=== PATIENT | male | born 1990 | race Caucasian/White ===

== ENCOUNTER 2017-10-03 08:43 | Emergency (ER) | payer MEDICAID ==
[~2017-10-03] VITALS: Ht 175.3 cm; Wt 107.0 kg
[2017-10-03 08:57] VITALS: BP_SYST 149
[2017-10-03] MEDS ORDERED: KETOROLAC TROMETHAMINE 30 MG VIAL IM ONE (09:15)
[2017-10-03 09:37] LABS: BASOPHILS # (AUTO) 0.1 K/uL (0.0-0.2); BASOPHILS % (AUTO) 0.8 % (0.0-2.0); EOSINOPHILS % (AUTO) 0.3 % (0.0-4.0); HEMATOCRIT 50.8 % (36-54); HEMOGLOBIN 16.7 g/dL (14.0-18.0); LYMPHOCYTES % (AUTO) 16.6 % (20.5-51.5); MEAN CORPUSCULAR HEMOGLOBIN 29 pg (27-31); MEAN CORPUSCULAR HGB CONC 33 % (32-36); MEAN CORPUSCULAR VOLUME 87 fL (79.0-98.0); MONOCYTES % (AUTO) 8.1 % (1.7-9.3); NEUTROPHILS # (AUTO) 8.7 K/uL (1.8-7.7); NEUTROPHILS % (AUTO) 74.2 % (40.0-70.0); PLATELET COUNT (AUTO) 264 K/uL (130-430); RED BLOOD CELL COUNT(AUTO) 5.84 MIL/uL (4.2-6.2); RED CELL DISTRIBUTION WIDTH 12.4 % (9.0-15.0); WHITE BLOOD COUNT (AUTO) 11.8 K/uL (4.8-10.8)
[2017-10-03 09:41] LABS: CALCIUM 9.2 mg/dL (8.4-11.0); CREATININE 1.02 mg/dL (0.55-1.30); POTASSIUM 3.7 mmol/L (3.5-5.1)
[2017-10-03 09:45] LABS: ALBUMIN 4.2 g/dL (3.4-4.8); TOTAL BILIRUBIN 0.9 mg/dL (0.0-1.0)
[2017-10-03 10:13] LABS: INFLUENZA A&B ANTIGEN SCREEN NEGATIVE FOR A & B (NEGATIVE)
[2017-10-03 10:27] VITALS: BP_SYST 135
[2017-10-03 13:26] LABS: STREPTOCOCCUS A SCREEN (RAPID) NEGATIVE (NEGATIVE)
== END 2017-10-03 10:27 | disposition home or self-care (01) ==
LOC: SED 08:43
DX: K52.9 Noninfective gastroenteritis and colitis, unspecified (principal); J02.9 Acute pharyngitis, unspecified
CPT/HCPCS: 36415; 80053; 83690; 85025; 86403; 86710; 96372; 99284; J1885; 87081

== ENCOUNTER 2018-09-09 20:19 | Emergency (ER) | payer MEDICAID ==
[~2018-09-09] VITALS: Ht 180.3 cm; Wt 122.5 kg
[2018-09-09] MEDS ORDERED: NACL 0.9% 1,000 ML IV ONE (20:44)
[2018-09-09 20:45] VITALS: BP_SYST 148
--- NOTE | 2018-09-09 20:46 | NUR ---
Patient to ER bed h1 to gown for evaluation. Side rails up. Report received from ANGELA Tran.
--- NOTE | 2018-09-09 20:46 | NUR ---
Pt complains of feeling dizzy and weak since today. Pt states he felt like this last week but resolved. Pt denies chest pain, blurred vision, N/V, or fever. No other injuries/complaints per patient or noted.
--- NOTE | 2018-09-09 21:10 | NUR ---
Laboratory at bedside
[2018-09-09 21:34] LABS: BASOPHILS % (AUTO) 0.6 % (0.0-2.0); EOSINOPHILS % (AUTO) 2.3 % (0.0-4.0); HEMATOCRIT 44.9 % (36-54); HEMOGLOBIN 15.3 g/dL (14.0-18.0); LYMPHOCYTES % (AUTO) 31.1 % (20.5-51.5); MEAN CORPUSCULAR HEMOGLOBIN 30 pg (27-31); MEAN CORPUSCULAR HGB CONC 34 % (32-36); MEAN CORPUSCULAR VOLUME 88 fL (79.0-98.0); MONOCYTES % (AUTO) 9.5 % (1.7-9.3); NEUTROPHILS % (AUTO) 56.5 % (40.0-70.0); PLATELET COUNT (AUTO) 251 K/uL (130-430); RED BLOOD CELL COUNT(AUTO) 5.09 MIL/uL (4.2-6.2); RED CELL DISTRIBUTION WIDTH 13.5 % (9.0-15.0); WHITE BLOOD COUNT (AUTO) 6.5 K/uL (4.8-10.8)
[2018-09-09 21:35] LABS: EOSINOPHILS # (AUTO) 0.1 K/uL (0.0-0.4); MONOCYTES # (AUTO) 0.6 K/uL (0.0-1.0); NEUTROPHILS # (AUTO) 3.7 K/uL (1.8-7.7)
[2018-09-09 21:44] LABS: CALCIUM 8.5 mg/dL (8.4-11.0); CREATININE 0.94 mg/dL (0.55-1.30)
[2018-09-09 22:07] LABS: ALBUMIN 3.9 g/dL (3.4-4.8); TOTAL BILIRUBIN 0.4 mg/dL (0.0-1.0)
--- NOTE | 2018-09-09 22:23 | NUR ---
Pt gave urine sample. sent to lab.
[2018-09-09 22:31] LABS: BILIRUBIN,URINE NEGATIVE (NEGATIVE); BLOOD, URINE NEGATIVE (NEGATIVE); CLARITY/URINE CLEAR (CLEAR); COLOR,URINE YELLOW (YELLOW); GLUCOSE,URINE NEGATIVE (NEGATIVE); KETONES,URINE NEGATIVE (NEGATIVE); LEUKOCYTE ESTERASE ,URINE NEGATIVE (NEGATIVE); NITRITE, URINE NEGATIVE (NEGATIVE); PROTEIN URINE NEGATIVE (NEGATIVE); UROBILINOGEN,URINE 0.2 (0.2-1.0)
--- NOTE | 2018-09-09 23:33 | NUR ---
Pt resting comfortably in bed. No acute distress, will continue to monitor.
[2018-09-09] MEDS ORDERED: LORazepam 2 MG/ML VIAL (FOR ER USE) IVP ONE (23:45)
[2018-09-10 00:27] LABS: BARBITURATE, URINE NEGATIVE (NEG <=200); BENZODIAZEPINE, URINE NEGATIVE (NEG <=150); CANNABINOID, URINE NEGATIVE (NEG <=50); COCAINE, URINE NEGATIVE (NEG <=150); METHAMPHETAMINES SCREEN,URINE NEGATIVE (NEG <=500); OPIATE, URINE NEGATIVE (NEG <=100); PHENCYCLIDINE SCREEN,URINE NEGATIVE (NEG <=25); UR TRICYCLIC ANTIDEPRESSANTS NEGATIVE (NEG <=300); URINE AMPHETAMINE NEGATIVE (NEG <=500); URINE METHADONE NEGATIVE (NEG <=200); URINE OXYCODONE SCREEN NEGATIVE (NEG <=100); URINE PROPOXYPHENE SCREEN NEGATIVE (NEG <=300)
[2018-09-10 01:30] VITALS: BP_SYST 145
--- NOTE | 2018-09-10 01:30 | NUR ---
Patient given written and verbal discharge instructions and verbalizes understanding. ER MD discussed with patient the results and treatment provided. Patient in stable condition. ID arm band removed. IV catheter removed intact and dressing applied, no active bleeding. Rx of Ativan given. Patient educated on pain management and to follow up with PMD. Pain Scale 0. Opportunity for questions provided and answered. Medication side effect fact sheet provided.
== END 2018-09-10 01:30 | disposition home or self-care (01) ==
LOC: SED 20:19
DX: R42 Dizziness and giddiness (principal); B19.9 Unspecified viral hepatitis without hepatic coma; F41.9 Anxiety disorder, unspecified; R74.0 Nonspecific elevation of levels of transaminase and lactic acid dehydrogenase [LDH]; R94.5 Abnormal results of liver function studies; I10 Essential (primary) hypertension; Z88.0 Allergy status to penicillin
CPT/HCPCS: 36415; 71045; 80053; 80307; 81003; 82550; 83690; 84484; 85025; 93005; 96361; 96374; 99284; G0482; J2060; J7030

== ENCOUNTER 2018-09-29 13:22 | Emergency (ER) | payer MEDICAID ==
[~2018-09-29] VITALS: Ht 180.3 cm; Wt 127.0 kg
[2018-09-29 13:36] VITALS: BP_SYST 125
== END 2018-09-29 16:40 | disposition home or self-care (01) ==
LOC: SED 13:22
DX: J06.9 Acute upper respiratory infection, unspecified (principal); R03.0 Elevated blood-pressure reading, without diagnosis of hypertension; Z88.0 Allergy status to penicillin
CPT/HCPCS: 36415; 71045; 86710; 99284

== ENCOUNTER 2019-02-09 13:56 | Emergency (ER) | payer MEDICAID ==
[~2019-02-09] VITALS: Ht 180.3 cm; Wt 120.2 kg
[2019-02-09 14:02] VITALS: BP_SYST 137
[2019-02-09 14:30] VITALS: BP_SYST 137
== END 2019-02-09 14:30 | disposition home or self-care (01) ==
LOC: SED 13:56
DX: B02.9 Zoster without complications (principal); R03.0 Elevated blood-pressure reading, without diagnosis of hypertension; Z88.0 Allergy status to penicillin
CPT/HCPCS: 99283

== ENCOUNTER 2019-05-28 21:50 | Emergency (ER) | payer MEDICAID ==
[~2019-05-28] VITALS: Ht 180.3 cm; Wt 117.9 kg
[2019-05-28 21:58] VITALS: BP_SYST 155
--- NOTE | 2019-05-28 21:58 | NUR ---
Patient to ER bed 5 for evaluation. Side rails up.
--- NOTE | 2019-05-28 22:00 | NUR ---
ER Dr. Ayala at bedside examining patient.
--- NOTE | 2019-05-28 22:05 | NUR ---
Pt C/O rash to the chin x 2 weeks. Pt noticed the symptoms after shaving with an old razor. Rash has not improved with Aquafor. Denies any SOB, fever or any other associated symptoms. Will continue to monitor.
[2019-05-28 22:22] VITALS: BP_SYST 155
--- NOTE | 2019-05-28 22:23 | NUR ---
Patient given written and verbal discharge instructions and verbalizes understanding. ER MD discussed with patient the results and treatment provided. Patient in stable condition. ID arm band removed. Rx of Bactrim and Keflex given. Patient educated on pain management and to follow up with PMD. Pain Scale 0. Opportunity for questions provided and answered. Medication side effect fact sheet provided.
== END 2019-05-28 22:22 | disposition home or self-care (01) ==
LOC: SED 21:50
DX: L30.9 Dermatitis, unspecified (principal); R21 Rash and other nonspecific skin eruption; Z88.0 Allergy status to penicillin
CPT/HCPCS: 99283

== ENCOUNTER 2023-06-10 11:22 | Emergency (ER) | payer SELFPAY ==
[~2023-06-10] VITALS: Ht 162.6 cm; Wt 117.9 kg
[2023-06-10 11:30] VITALS: BP_SYST 143; PULSE 95; RESP 18; TEMP 98.3; O2SAT 98
[2023-06-10] MEDS ORDERED: CLINDAMYCIN HCL 150 MG CAPSULE PO ONE (12:00)
[2023-06-10] MEDS ORDERED: LIDOCAINE VISCOUS 2%, 15 ML UDC MM ONE (12:00)
[2023-06-10] MEDS ORDERED: IBUPROFEN 800 MG TABLET PO ONE (12:00)
[2023-06-10] MEDS ORDERED: IBUP-1969 PO (13:06)
[2023-06-10] MEDS ORDERED: CHLO473M5 PO (13:06)
[2023-06-10] MEDS ORDERED: CLIN-22 PO (13:06)
[2023-06-10 13:30] VITALS: BP_SYST 128; PULSE 70; RESP 14; TEMP 98.3; O2SAT 99
== END 2023-06-10 13:26 | disposition home or self-care (01) ==
LOC: SED 11:22
DX: K04.7 Periapical abscess without sinus (principal); Z79.899 Other long term (current) drug therapy
CPT/HCPCS: 99284; J2001